=== PATIENT | female | born 1960 | race Caucasian/White ===

== ENCOUNTER 2018-12-23 09:37 | Outpatient (REF) | payer OTHER, SELFPAY ==
--- NOTE | 2018-12-23 09:00 | PAPFT_PTH ---
PATIENT: Lacey Diaz LOC: [facility] U#:[id number] AGE/SX: 58/F ROOM: RE12/23/[address]: GIO Marsh : 1960 BED: DIS: 12/23/2018 SPEC #: [id number] RECD: 12/23/18 12:51 STATUS: YASMIN RELicha #: [id number] MORIAH: 12/23/18 09:[address]: Mica Mckenzie DEPT: [facility] Cytology RECD BY: Annette Stark ENTERED: 12/23/18 12:51 SP TYPE: PAPFT ABHI DR: Raoul Amaya Tissues: 1 - CX/ENDOCX FOR PAP SMEARS Procedures: PAP THIN PREP/[facility] Screening HPV DNA PROBE Comments: [id number]
[2018-12-24 13:21] LABS: HSV 2 DNA Result Negative
[2018-12-26 08:36] LABS: HSV 1 DNA Result POSITIVE
== END 2018-12-23 09:57 ==
LOC: LBN 09:37
PROVIDERS: PCP Family Medicine Adult Medicine; Visit Provider Nurse Practitioner Family
DX: Z12.4 Encounter for screening for malignant neoplasm of cervix (principal); Z11.51 Encounter for screening for human papillomavirus (HPV); Z11.59 Encounter for screening for other viral diseases; N90.9 Noninflammatory disorder of vulva and perineum, unspecified
CPT/HCPCS: 87529; 88142; 87624

== ENCOUNTER 2021-09-12 10:14 | Outpatient (REF) | payer BC, SELFPAY ==
--- NOTE | 2021-09-12 09:15 | PAPFT_PTH ---
PATIENT: Lacey Diaz LOC: [facility] U#:[id number] AGE/SX: 61/F ROOM: RE09/12/[address]: GIO Marsh : 1960 BED: DIS: 09/12/2021 SPEC #: [id number] RECD: 09/12/21 13:04 STATUS: YASMIN RELicha #: [id number] MORIAH: 09/12/21 09:[address]: Mica Mckenzie DEPT: [facility] Cytology RECD BY: Annette Stark ENTERED: 09/12/21 13:04 SP TYPE: PAPFT OT DR: Unknown,Unknown Tissues: 1 - CX/ENDOCX FOR PAP SMEARS Procedures: PAP THIN PREP/UVM Screening HPV DNA PROBE Comments: [id number]
== END 2021-09-12 10:15 | disposition home or self-care (01) ==
LOC: LBN 10:14
PROVIDERS: Visit Provider Nurse Practitioner Family
DX: Z12.4 Encounter for screening for malignant neoplasm of cervix (principal); Z11.51 Encounter for screening for human papillomavirus (HPV)
CPT/HCPCS: 88142; 87624

== ENCOUNTER 2023-10-06 17:21 | Outpatient (REF) | payer BC, SELFPAY ==
--- NOTE | 2023-10-06 14:30 | ENDOMET_PTH ---
PATIENT: Lacey Diaz LOC: [facility] U#:[id number] AGE/SX: 63/F ROOM: RE10/06/[address]: Ave Tellez DO : 1960 BED: DIS: 10/06/2023 SPEC #: [id number] RECD: 10/06/23 17:23 STATUS: SOUT REQ #: [id number] MORIAH: 10/06/23 14:[address]: Ave Tellez DEPT: Surgical Specimen RECD BY: Annette Stark ENTERED: 10/06/23 17:24 SP TYPE: Endomet OTHR DR: Unknown,Unknown Tissues: 1 - ENDOMETRIUM BX/CURRETTE Procedures: GROSS AND MICRO LEVEL 4 Comments: [id number]
--- OUTSIDE RECORDS SUMMARY | 2023-10-06 17:24 | XMS_ITS | Patient Health Record ---
Author Name Unknown Organization [facility] Address [address] [place] [address] [place] [address] Care Team Providers Care Methods Engineer Name Role Phone ERNIE MARQUEZ Primary Care Provider [phone] MARLYN YOUNG [phone] ALLERGIES Allergen (clinical drug ingredient) Drug/Non Drug Allergy documented on EMR Reaction Allergy Type Onset Date Status povidone-iodine betadine (uncoded) Unknown Allergy Active Gluten gluten (uncoded) Unknown Allergy Act alexis amoxicillin Amoxicillin hives Drug Allergy Act alexis bee pollen Bee Pollen Unknown Drug Allergy Activ e Dye FCI Red 2 (Amaranth) Unknown Drug Allergy Active Dye FCI Red 3 (Erythrosine) Unknown Drug Allergy Active Dye FCI Red 40 (Sujata ine Red) Unknown Drug Allergy Active Iodine Unknown Drug Allergy Active Lactose Unknown Drug Allergy Active topiramate Topamax Unknown Drug Allergy Active Latex Exam Gloves Unknown Drug Allergy Active Dye FCI Red 40 (Allu ra Red) Unknown Drug Allergy Active Nortripytline HCl Unknown Drug Allergy Active tree nuts Unknown Drug Allergy Active peanuts Unknown Drug Allergy Active RESULTS Component Value Reference Range Notes COMPREHENSIVE METABOLIC PANE L Reviewed date:05/17/2023 09:21:48 AM Interpretation: Performing Lab:NL1, [facility], [address] [place] [address], [phone] Velasquez Taylor M.D. Notes/Report: Received Date: GLUCOSE 84 65-99 mg/dL Fasting reference interval UREA NITROGEN (BUN) 11 7-25 mg/dL CREATININE 0.74 0.50-1.05 mg/dL EGFR 91 > OR = 60 mL/min/1.73m2 BUN/CREATININE RATIO SEE NOTE: 6-22 (calc) Not Reported: BUN and Creatinine are within reference range. SODIUM 138 135-146 mmol/L POTASSIUM 4.0 3.5-5.3 mmol/L CHLORIDE 103 98-110 mmol/L CARBON DIOXIDE 18 20-32 mmol/L CALCIUM 9.2 8.6-10.4 mg/dL PROTEIN, TOTAL 6.5 6.1-8.1 g/dL ALBUMIN 4.3 3.6-5.1 g/dL GLOBULIN 2.2 1.9-3.7 g/dL (calc) ALBUMIN/GLOBULIN RATIO 2.0 1.0-2.5 (calc) BILIRUBIN, TOTAL 0.5 0.2-1.2 mg/dL ALKALINE PHOSPHATASE 77 37-153 U/L AST 14 10-35 U/L ALT 10 6-29 U/L VITAMIN D, 25-HYDROXY, LC/MS /MS Reviewed date:05/17/2023 09:22:24 AM Interpretation: Performing Lab:NL1, [facility], [address] [place] [address], [phone] Velasquez Taylor M.D. Notes/Report: Received Date: VITAMIN D,25-OH,TOTAL,IA 37 30-100 ng/mL Vitamin D Status 25-OH Vitamin D: Deficiency: <20 ng/mL Insufficiency: 20 - 29 ng/mL Optimal: > or = 30 ng/mL For 25-OH Vitamin D testing on patients on D2-supplementation and patients for whom quantitation of D2 and D3 fractions is required, the QuestAssureD(TM) 25-OH VIT D, (D2,D3), LC/MS/MS is recommended: order code 29797 (patients >2yrs). See Note 1 Note 1 For additional information, please refer to http://education.WelVU/faq/OAJ638 (This link is being provided for informational/ educational purposes only.) TSH, 3RD GENERATION W/REFLEX TO FT4 Reviewed date:05/17/2023 09:21:58 AM Interpretation: Performing Lab:NL1, [facility], [address] [place] [address], [phone] Velasquez Taylor M.D. Notes/Report: Received Date: TSH W/REFLEX TO FT4 1.81 0.40-4.50 mIU/L CBC (INCLUDES DIFF/PLT) Reviewed date:05/17/2023 09:22:09 AM Interpretation: Performing Lab:[facility], [address] [place] [address], [phone] Velasquez Taylor M.D. Notes/Report: Received Date: WHITE BLOOD CELL COUNT 6.4 3.8-10.8 Thousand/ uL RED BLOOD CELL COUNT 3.92 3.80-5.10 Million/uL HEMOGLOBIN 12.3 11.7-15.5 g/dL HEMATOCRIT 37.1 35.0-45.0 % MCV 94.6 80.0-100.0 fL MCH 31.4 27.0-33.0 pg MCHC 33.2 32.0-36.0 g/dL RDW 12.4 11.0-15.0 % PLATELET COUNT 221 140-400 Thousand/uL MPV 11.1 7.5-12.5 fL ABSOLUTE NEUTROPHILS [phone] cells/uL ABSOLUTE LYMPHOCYTES 2889 538-0669 cells/uL ABSOLUTE MONOCYTES 442 200-950 cells/uL ABSOLUTE EOSINOPHILS 179 15-500 cells/uL ABSOLUTE BASOPHILS 32 0-200 cells/uL NEUTROPHILS 69.2 LYMPHOCYTES 20.6 MONOCYTES 6.9 EOSINOPHILS 2.8 BASOPHILS 0.5 VITAMIN B12/FOLATE, SERUM PA HERMELINDA Reviewed date:05/17/2023 09:22:35 AM Interpretation: Performing Lab:[facility], [address] [place] [address], [phone] Velasquez Taylor M.D. Notes/Report: Received Date: VITAMIN B12 065 739-8476 pg/mL FOLATE, SERUM 13.7 Reference Range Low: <3.4 Borderline: 3.4-5.4 Normal: >5.4 LIPID PANEL Reviewed date:05/17/2023 09:21:36 AM Interpretation: Performing Lab:[facility], [address] [place] [address], [phone] Velasquez Taylor M.D. Notes/Report: Received Date: CHOLESTEROL, TOTAL 179 <200 mg/dL HDL CHOLESTEROL 87 > OR = 50 mg/dL TRIGLYCERIDES 52 <150 mg/dL LDL-CHOLESTEROL 79 Reference range: <100 Desirable range <100 mg/dL for primary prevention; <70 mg/dL for patients with CHD or diabetic patients with > or = 2 CHD risk factors. LDL-C is now calculated using the Jaclyn calculation, which is a validated novel method providing better accuracy than the Friedewald equation in the estimation of LDL-C. Chas HARRIS et al. PHUC. 2013;310(38): 3107-0735 (http://education.Swidjit/faq/FAQ16 4) CHOL/HDLC RATIO 2.1 <5.0 (calc) NON HDL CHOLESTEROL 92 <130 mg/dL (calc) For patients with diabetes plus 1 major ASCVD risk factor, treating to a non-HDL-C goal of <100 mg/dL (LDL-C of <70 mg/dL) is considered a therapeutic option. REASON FOR REFERRAL No Information MEDICATIONS Medication SIG (Take, Route, Frequency, Duration) Notes Start Date End Date Status Syringe 23G X 1 3 ML 1 needle intramusc ular q monthly for 90 days 12/02/2020 Active Cyanocobalamin 1000 MCG/ML 1 ml Injectio n Once a month for 90 days Active valACYclovir HCl 1 GM 1 tablet Orally On ce a day Active tiZANidine HCl 4 MG 1 tablet as needed O rally Three times a day Active Benadryl 25 MG 2 capsules as needed Orally q 6 hours 11/10/2011 Active EpiPen 2-Lazaro 0.3 MG/0.3ML as directed In jection Once a day for 30 days 12/30/2017 Active IMMUNIZATIONS Vaccine Route Administration Date Status Comme nts Tdap-Adult Unknown 03/02/2006 Administered Td (adult) Unknown 05/24/2022 Administered SOCIAL HISTORY Tobacco Use: Social History Observation Description Date Details (start date - stop date) Former Smoker NA - NA Sex Assigned At : Social History Observation Description Sex Assigned At Unknown Tobacco Use/Smoking Question Answer Notes Are you a former smoker How long has it been since you last smoked? > 10 years Alcohol Screen Question Answer Notes Did you have a drink contain ing alcohol in the past year? Yes How often did you have a dri nk containing alcohol in the past year? 4 or more times a week (4 points) How many drinks did you have on a typical day when you were drinking in the past year? 1 or 2 drinks (0 point) How often did you have 6 or more drinks on one occasion in the past year? Never (0 point) Points 4 Interpretation Positive PROBLEMS Problem Type ICD Code Onset Dates Problem Status W/U Status Risk SNOMED Code Notes Problem Herpesviral infection of urogenital system, unspecified (A60.00) Active confirmed Genital herpes simplex (66539446) Problem Deficiency of other specified B group vitamins (E53.8) Active confirmed Vitamin B12 deficiency (non anemic) (42398152) Problem Vitamin D deficiency, unspecified (E55.9) Active confirmed Vitamin D deficiency (77321897) Problem Other hyperlipidemia (E78.4) Active confirmed Hyperlipidemia (90025886) Problem Migraine without aura, intractable, without status migrainosus (G43.019) Active confirmed Refractory migraine without aura (051700466) Problem Allergic rhinitis, unspecified (J30.9) Active confirmed Allergic rhinit is (67355682) Problem Gastro-esophageal reflux disease without esophagitis (K21.9) Active confirmed Gastro-esophage al reflux disease without esophagitis (601399989) Problem Diverticulitis of intestine, part unspecified, with perforation and abscess without bleeding (K57.80) Active confirmed Perforatio n of large and small intestine due to diverticulitis (7768837701274984 ) Problem Celiac disease (K90.0) Active confirmed Celiac disease (356671042) Problem Other cervical disc degeneration, unspecified cervical region (M50.30) Active confirmed Degeneration of cervical intervertebral disc (50582411) Problem Other dorsalgia (M54.89) Active confirmed Backache (272216741) Problem Dysphagia, unspecified (R13.10) Active confirmed Dysphagia (64404294) Problem Headache (R51) Active confirmed Headach e (09884776) Problem Personal history of COVID-19 (Z86.16) Active confirmed History of disease caused by Severe acute respiratory syndrome coronavirus 2 (situation) (7569214086955891 05) VITAL SIGNS Heart Rate 64 /min 05/13/2023 Temperature 97.2 degrees Fahrenheit 05/13/2023 Respiratory Rate 16 /min 05/13/2023 Oximetry 98 % 05/13/2023 Blood pressure diastolic 74 mm Hg 05/13/2023 Height 5 ft 3 in in 05/13/2023 Blood pressure systolic 120 mm Hg 05/13/2023 Weight 147 lbs 05/13/2023 BMI 26.04 kg/m2 05/13/2023 Encounters Encounter Location Date Provider Diagnosis [address] [address] 01/28/2023 MARLYN [facility] [address] [place] [address] 02/09/2023 MARLYN [facility] [address] [place] [address] [facility] [address] [place] [address] 04/13/2023 MARLYN [facility] [address] [place] [address] 04/14/2023 [facility]LYN [facility] Deficiency of other specified B group vitamins E53.[address] [address] 05/13/2023 MARLYN [facility] Encounter for general adult medical examination without abnormal findings Z00.00 ; Encounter for screening mammogram for malignant neoplasm of breast Z12.31 ; Vitamin D deficiency, unspecified E55.9 ; Deficiency of other specified B group vitamins E53.8 and Pain in left hip M25.552 ASSESSMENTS Encounter Date Diagnosis Assessment Notes Treatment Notes Treatment Clinical Notes 05/13/2023 Encounter for general adult medical examination without abnormal findings (ICD-10 - Z00.00) Pt educated. Fasting labs drawn. Immunizations reviewed and discussed 05/13/2023 Encounter for screening mammogram for malignant neoplasm of breast (ICD-10 - Z12.31) Pt states it is ordered by TREASURY DIRECTOR 04/14/2023 Deficiency of other specified B group vitamins (ICD-10 - E53.8) 05/13/2023 Vitamin D deficiency, unspecified (ICD-10 - E55.9) Will check level 05/13/2023 Deficiency of other specified B group vitamins (ICD-10 - E53.8) Continue self injection 05/13/2023 Pain in left hip (ICD-10 - M25.552) Followed by ortho PLAN OF TREATMENT Pending Test Test Name Order Date Electrocardiogram (EKG) 05/13/2017 Vitamin B12 06/23/2011 CBC With Differential/Platelet 1 T4 and TSH 06/23/2011 Comp. Metabolic Panel (14) 06/23/2011 VENIPUNCT, ROUTINE* 06/23/2011 VENIPUNCT, ROUTINE* 09/30/2011 VENIPUNCT, ROUTINE* 07/28/2012 Urinalysis 10/24/2014 Urinalysis 11/17/2013 Urinalysis 09/05/2013 Urinalysis 10/30/2015 Urinalysis 04/02/2015 CT Scan : Brain 10/21/2011 C DIFFICILE AMPLIFIED PROBE 06/23/2011 GIARDIA/CRYPTO ANTIGEN 06/23/2011 LIPID (HDL) PROFILE 06/23/2011 OVA AND PARASITE ROUTINE 06/23/2011 Exercise Stress Test 05/13/2017 C DIFFICILE AMPLIFIED PROBE 04/10/2020 URINALYSIS DIP w/REFLEX MICRO 03/26/2015 BD BONE DENSITY, DEXA SCAN 06/17/2022 BD BONE DENSITY, DEXA SCAN 01/22/2022 MG MAMMOGRAPHY BILATERAL SCREENING 06/17 MG MAMMOGRAPHY BILATERAL SCREENING 01/22 MR BRAIN WO CONTRAST 08/14/2015 XR SPINE DORSAL 1 VIEW 05/13/2017 Next Appt Details Provider Name:MARLYN SALAZAR NS, 05/17/2024 08:30:00 AM, [address] [facility], [facility], [place], [address], Insurance Providers Payer Name Payer Address Payer Phone Subscriber Number Group Number Insured Name Patient Relationship to Insured Coverage Start Date Coverage End Date IZA [id number] [place] [address] [id number] Lacey Mattson Self - patient is the insured MEDICATIONS ADMINISTERED Medication Instructions Date of Administration Dosage Notes Cyanocobalamin 1000 mcg 01/25/2019 1 mL Cyanocobalamin 1000 mcg 02/02/2019 1 mL W EST ABBOTT Cyanocobalamin 1000 mcg 02/08/2019 1 mL P t given injection in left deltoid without difficulty. Cyanocobalamin 1000 mcg 04/10/2020 1 mL Cyanocobalamin 1000 mcg 05/09/2020 1 mL Cyanocobalamin 1000 mcg 07/07/2021 1 mL Cyanocobalamin 1000 mcg 12/24/2021 1 mL Cyanocobalamin 1000 mcg 06/17/2022 1 mL MEDICAL (GENERAL) HISTORY Medical History History ICD Code 09-12-2021 Pap/hpv, Mica Magaly [employer], n eg 09-03-2022 Dexa Scan 03-20-2015 Celiac disease severe gluten allergy raynaulds osteopenia neprolithiasis migraines kidney stone hypothyroidism 06-01-2022 Colonoscopy, repeat 10 years 09-03-2022 mammo, neg Surgical History Surgery Date(Month/Year) repair of umbilical hernia 1960 tubes in ears adenoidectomy cryosurgery vaginal hemmroids colonoscopy, Dr Butler 06/01/2022
== END 2023-10-06 17:22 | disposition home or self-care (01) ==
LOC: LBN 17:21
PROVIDERS: Visit Provider Obstetrics & Gynecology
DX: N95.0 Postmenopausal bleeding (principal); R93.89 Abnormal findings on diagnostic imaging of other specified body structures
CPT/HCPCS: 88305

== ENCOUNTER 2024-06-26 13:35 | Outpatient (REF) | payer BC, SELFPAY | END 2024-06-26 13:36 | disposition home or self-care (01) | LOC: LBN 13:35 | PROVIDERS: Visit Provider Nurse Practitioner Women's Health | DX: N76.0 Acute vaginitis (principal); B00.9 Herpesviral infection, unspecified; N89.8 Other specified noninflammatory disorders of vagina; N39.0 Urinary tract infection, site not specified; B95.2 Enterococcus as the cause of diseases classified elsewhere | CPT/HCPCS: 87480; 87510; 87660 ==